=== PATIENT | female | born 1970 | race Caucasian/White ===

== ENCOUNTER 2016-07-05 12:48 | Emergency (ER) | payer OTHER ==
[~2016-07-05 12:48] MED LIST: AMITRIPTYLINE H25 MG PO; ANUSOL30 GM EXT; BENTYL10 MG DOB; BENTYL20 MG PO; CELEXA PO; CIPRO PO; COLACE50 MG PO; COLESTID PO; COMPAZINE10 M1 PO; DIAZEPAM PO; FAMOTIDINE PO; FIORICET 50-321 EACH PO; FLAGYL PO; FLEXERIL10 M1 PO; FLEXERIL10 MG PO; GABAPENTIN600 MG PO; HYDROCODON-ACE1 EAC1 PO; HYDROCODON-ACE1 EAC5 PO; KLONOPIN1 MG; KLONOPIN1 MG PO; LEVOTHROID137 MCG PO; LEVOTHROID175 MCG PO; LEVOXYL0.137 MG PO; LIBRAX CAPSULE1 CA1 PO; LIDODERM30 EA TOP; LORTAB 10-5001 EACH PO; LORTAB 5/500 TA1 TA1 PO; LORTAB 7.5-5001 TAB PO; LORTAB 7.51 TAB 7.5/ PO; MEDROL PO; MEDROL4 MG/DOSE- PO; METOPROLOL SUCC25 MG PO; METOPROLOL TAR25 MG PO; MIRALAX17 GM PO; MIRAPEX PO; MIRAPEX1 MG DOB; MIRAPEX1 MG PO; MIRAPEX1.5 MG PO; NEURONTIN600 MG PO; NITROGLYCERIN OI1 GM EXT; NORCO 10-325 TA1 TAB PO; OMEPRAZOLE40 M1 PO; OMEPRAZOLE40 MG PO; ORUDIS75 M1 DOB; PERCOCET 5-3251 TAB PO; PERCOCET PO; PERCOCET10 PO; PERCOCET5/325 PO; PHENERGAN PO; PHENERGAN SUPP25 MG PR; PHENERGAN12.5 MG DOB; PHENERGAN25 MG PO; PHENERGAN50 MG/SUPP PR; PREDNISONE PO; PREDNISONE10 MG PO; PRILOSEC20 MG DOB; PRILOSEC40 MG PO; PROCTOFOAM-HC F10 GM PR; PROMETHAZINE12.5 MG PO; REGLAN10 MG PO; SYNTHROID PO; TEGRETOL PO; TOPROL XL PO; TYLOX 5-500 CA1 EACH PO; TYLOX 5/500 CAP1 CAP PO; ULTRAM PO; VICODIN 5/500 T1 TAB PO; VICODIN PO; ZANAFLEX4 M1 PO; ZANTAC300 MG PO; ZOFRAN ODT4 MG PO; ZOFRAN PO; ZOFRAN8 MG PO; [UNRECOGNIZED DRUG - OTHER] XX
[2016-07-05] MEDS ORDERED: KLONOPIN (13:12)
[2016-07-05] MEDS ORDERED: ZOCOR (13:12)
== END 2016-07-05 13:58 | disposition home or self-care (01) ==
LOC: SED 12:48
DX: S16.1XXA Strain of muscle, fascia and tendon at neck level, initial encounter (principal); Z88.6 Allergy status to analgesic agent; Z88.8 Allergy status to other drugs, medicaments and biological substances; Z79.899 Other long term (current) drug therapy; X58.XXXA Exposure to other specified factors, initial encounter; Y92.9 Unspecified place or not applicable
CPT/HCPCS: 96372; 99283; J1885; J2360